=== PATIENT | female | born 1990 | race American Indian/Alaskan Native ===

== ENCOUNTER 2017-01-26 17:27 | Emergency (ER) | payer MEDICAID ==
[2017-01-26] MEDS ORDERED: LIDOCAINE VISCOUS 2% PO ONE (19:47)
--- NOTE | 2017-01-26 19:52 | Emergency Department Report ---
ED Female HPI - General Chief complaint: Rectal Pain Stated complaint: HEMORRIODS Time Seen by Provider: 01/26/17 19:23 Source: patient Mode of arrival: Ambulatory Limitations: No Limitations - History of Present Illness Initial comments: This is a 26-year-old female at 39 weeks gestation presents to ED complaining of rectal pain x today. She admits pain with sitting on her butt. Patient states she started to feel the pain around 4 AM today. She reports good movement and no vaginal discharge, bleeding or leakage of fluids Patient states she has a history of hemorrhoids but has never had one this bad. She denies any blood in the stool. patient states she had a bowel movement today. She denies fevers/chills/abdominal pain or any other problem Severity scale (0 -10): 9 Consistency: constant Improves with: none - Related Data Previous Rx's Medication Instructions Recorded Last Taken Type Sulfamethoxazole/Trimethoprim 1 each PO BID #14 tablet 02/11/16 Unknown Rx [Bactrim DS TAB] Acetaminophen [Tylenol] 500 mg PO Q6H #30 tablet 01/26/17 Unknown Rx Cephalexin [Keflex] 500 mg PO BID #12 capsule 01/26/17 Unknown Rx Docusate Sodium [Colace] 100 mg PO BID #30 capsule 01/26/17 Unknown Rx Hydrocortisone [Anucort-HC SUPPOS] 25 mg SD BID #30 supp.rect 01/26/17 Unknown Rx Allergies Allergy/AdvReac Type Severity Reaction Status Date / Time No Known Allergies Allergy Verified 02/11/16 10:25 ED Review of Systems ROS: Stated complaint: HEMORRIODS Other details as noted in HPI Constitutional: denies: chills, fever Eyes: denies: eye pain, eye discharge, vision change ENT: denies: ear pain, throat pain Respiratory: denies: cough, shortness of breath, wheezing Cardiovascular: denies: chest pain, palpitations Endocrine: no symptoms reported Gastrointestinal: denies: abdominal pain, nausea, vomiting, diarrhea Genitourinary: denies: urgency, dysuria, frequency, hematuria, discharge, dyspareunia Musculoskeletal: denies: back pain, joint swelling, arthralgia Skin: denies: rash, lesions Neurological: denies: headache, weakness, numbness, paresthesias, confusion Psychiatric: denies: anxiety, depression Hematological/Lymphatic: denies: easy bleeding, easy bruising ED Past Medical Hx - Past Medical History Hx Hypertension: Yes (1st baby) Hx Heart Attack/AMI: No Hx Congestive Heart Failure: No Hx Diabetes: No Hx Deep Vein Thrombosis: No Hx GERD: Yes Hx Liver Disease: No Hx Renal Disease: No Hx Sickle Cell Disease: No Hx Seizures: No Hx Asthma: No Hx COPD: No Hx HIV: No - Surgical History Additional Surgical History: D&C SEPTEMBER 2015 - Social History Smoking Status: Never Smoker Substance Use Type: None - Medications Home Medications: Home Medications Medication Instructions Recorded Confirmed Last Taken Type Sulfamethoxazole/Trimethoprim 1 each PO BID #14 tablet 02/11/16 Unknown Rx [Bactrim DS TAB] Acetaminophen [Tylenol] 500 mg PO Q6H #30 tablet 01/26/17 Unknown Rx Cephalexin [Keflex] 500 mg PO BID #12 capsule 01/26/17 Unknown Rx Docusate Sodium [Colace] 100 mg PO BID #30 capsule 01/26/17 Unknown Rx Hydrocortisone [Anucort-HC SUPPOS] 25 mg SD BID #30 supp.rect 01/26/17 Unknown Rx ED Physical Exam - General Limitations: No Limitations General appearance: alert, in no apparent distress - Head Head exam: Present: atraumatic, normocephalic - Eye Eye exam: Present: normal appearance - ENT ENT exam: Present: mucous membranes moist - Neck Neck exam: Present: normal inspection - Respiratory Respiratory exam: Present: normal lung sounds bilaterally. Absent: respiratory distress - Cardiovascular Cardiovascular Exam: Present: regular rate, normal rhythm. Absent: systolic murmur, diastolic murmur, rubs, gallop - GI/Abdominal GI/Abdominal exam: Present: soft, normal bowel sounds - Rectal Rectal exam: Present: hemorrhoids (external thrombosed hemorrhoid at 12 oclock measuring about 2-3 cm), mass, tenderness - External exam: Present: normal external exam - Expanded Exam Expanded External exam: Present: normal - Extremities Exam Extremities exam: Present: normal inspection - Back Exam Back exam: Present: normal inspection - Neurological Exam Neurological exam: Present: alert, oriented X3 - Psychiatric Psychiatric exam: Present: normal affect, normal mood - Skin Skin exam: Present: warm, dry, intact, normal color. Absent: rash ED Course Vital Signs 01/26/17 17:43 Temperature 98.0 F Pulse Rate 114 H Respiratory 17 Rate Blood Pressure 115/80 O2 Sat by Pulse 100 Oximetry ED Medical Decision Making - Medical Decision Making 26-year-old female presents with acute internal. 3 hemorrhage ED course: Topical lidocaine was applied. Patient positioned appropriately, 10cc lidocaine with epinephrine was used as a local anesthetic. #11 blade scalpel used for single incision. hemorrhoid was reducible after about 2ccs of blood passed. Patient reports feeling much better. Procedure tolerated without complications. Pt tolerated procedure well. Discussed with patient to follow-up with engineering director as referred. Discussed the patient to follow-up with her [employer] as scheduled. Discussed taken Colace for stool softening, and prevent infection and any required to further decrease the hemorrhoid Critical care attestation.: If time is entered above; I have spent that time in minutes in the direct care of this critically ill patient, excluding procedure time. ED Disposition Clinical Impression: Acute hemorrhoid Hemorrhoid Qualifiers: Hemorrhoid type: third degree Qualified Code(s): K64.2 - Third degree hemorrhoids Disposition: TO HOME OR SELFCARE Is pt being admited?: No Does the pt Need Aspirin: No Condition: Stable Instructions: Hemorrhoids (ED) Additional Instructions: Make sure to follow-up with a GI doctor. Follow-up with your [facility] [employer] as scheduled Particular medications as prescribed Prescriptions: Acetaminophen [Tylenol] 500 mg PO Q6H #30 tablet Cephalexin [Keflex] 500 mg PO BID #12 capsule Docusate Sodium [Colace] 100 mg PO BID #30 capsule Hydrocortisone [Anucort-HC SUPPOS] 25 mg SD BID #30 supp.rect Referrals: PRIMARY CARE, [Primary Care Provider] - 3-5 Days JODY PHILIP MD [Staff Physician] - 3-5 Days HAL WITT MD [Staff Physician] - 3-5 Days GILBERTO LEVY MD [Staff Physician] - 3-5 Days Forms: Accompanied Note, Work/School Release Form(ED) Time of Disposition: 21:02
[2017-01-26] MEDS ORDERED: ANUCORT-HC PR ONE (20:55)
[2017-01-26 22:04] VITALS: BP 111/77
== END 2017-01-26 21:58 | disposition home or self-care (01) ==
LOC: ED 17:27
DX: O22.43 Hemorrhoids in pregnancy, third trimester (principal); K64.2 Third degree hemorrhoids; K21.9 Gastro-esophageal reflux disease without esophagitis; Z3A.39 39 weeks gestation of pregnancy

== ENCOUNTER 2019-05-08 01:28 | Inpatient (IN) | payer MEDICAID ==
[2019-05-08] MEDS ORDERED: LACTATED RINGERS 1,000 ML IV SCH (02:00)
[2019-05-08] MEDS ORDERED: TERBUTALINE 1 MG/1 ML INJ SUB-Q PRN (02:00)
[2019-05-08] MEDS ORDERED: ePHEDrine SULFATE 50 MG/1 ML INJ IV PRN (02:00)
[2019-05-08] MEDS ORDERED: TERBUTALINE 1 MG/1 ML INJ IVP PRN (02:00)
[2019-05-08] MEDS ORDERED: MINERAL OIL 30 ML ORAL LIQD PO PRN (02:00)
[2019-05-08] MEDS ORDERED: AMPICILLIN/NS 2 GM/100 ML 2 GM/100 ML BAG IV ONE (02:00)
[2019-05-08] MEDS ORDERED: LIDOCAINE (2%) 20 MG/1 ML VIAL 20 ML MDV INFILTRATI ONE (02:00)
[2019-05-08] MEDS ORDERED: fentaNYL 100 MCG/2 ML INJ IV PRN (02:00)
[2019-05-08 02:30] LABS: Hematocrit 40.6 % (30.3-42.9); Hemoglobin 13.8 gm/dl (10.1-14.3); Mean Corpuscular HGB Conc 34 % (30-34); Mean Corpuscular Volume 97 fl (79-97); Platelet Count 218 K/mm3 (140-440); Red Blood Count 4.19 M/mm3 (3.65-5.03); Red Cell Distribution Width 13.7 % (13.2-15.2)
--- NOTE | 2019-05-08 02:50 | History and Physical Report ---
History of Present Illness Date of examination: 05/08/19 Chief complaint: Labor History of present illness: Pt is a 29yo BF EDC 05/05/19; EGA 40 3/7 weeks presents to L&D complaining of RUC's q 3-5 mins. She [facility] care at [facility] since 14 weeks and course has been unremarkable. records are available and GBS is Positive. Past History Past Medical History: no pertinent history Past Surgical History: no surgical history Family/Genetic History: none Social history: no significant social history, - Obstetrical History Expected Date of Delivery: 05/05/19 Actual Gestation: 40 Week(s) 3 Day(s) : 5 Medications and Allergies Allergies Allergy/AdvReac Type Severity Reaction Status Date / Time No Known Allergies Allergy Verified 01/26/17 20:58 Home Medications Medication Instructions Recorded Confirmed Last Taken Type Sulfamethoxazole/Trimethoprim 1 each PO BID #14 tablet 02/11/16 Unknown Rx [Bactrim DS TAB] Acetaminophen [Tylenol] 500 mg PO Q6H #30 tablet 01/26/17 Unknown Rx Cephalexin [Keflex] 500 mg PO BID #12 capsule 01/26/17 Unknown Rx Docusate Sodium [Colace] 100 mg PO BID #30 capsule 01/26/17 Unknown Rx Hydrocortisone [Anucort-HC SUPPOS] 25 mg PA BID #30 supp.rect 01/26/17 Unknown Rx Ibuprofen [Motrin 600 MG tab] 600 mg PO Q8H PRN #30 tablet 01/31/17 Unknown Rx Multivitamin with Iron 1 each PO DAILY #30 tablet 01/31/17 Unknown Rx [Multivitamins with Iron] Cyclobenzaprine [Flexeril] 10 mg PO TID PRN #30 tablet 04/16/18 Unknown Rx Menthol/Camphor [[place] Ute 1 applicatio TP TID PRN #1 tube 04/16/18 Unknown Rx Ointment] Naproxen [Naprosyn TAB] 500 mg PO BID PRN #30 tablet 04/16/18 Unknown Rx Active Meds: Active Medications Ephedrine Sulfate (Ephedrine Sulfate) 10 mg IV Q2M PRN PRN Reason: Hypotension Fentanyl (Sublimaze) 100 mcg IV Q2H PRN PRN Reason: Labor Pain Oxytocin/Sodium Chloride (Pitocin/Ns 20 Unit/1000ml Drip) 20 units in 1,000 mls @ 125 mls/hr IV DIRECT TAD Lactated Ringer's (Lactated Ringers) 1,000 mls @ 125 mls/hr IV DIRECT TAD Ampicillin Sodium (Ampicillin/Ns 2 Gm/100 Ml) 2 gm in 100 mls @ 100 mls/hr IV ONCE ONE; Protocol Stop: 05/08/19 02:59 Ampicillin Sodium (Ampicillin/Ns 1 Gm/50 Ml) 1 gm in 50 mls @ 100 mls/hr IV Q4HR TAD; Protocol Mineral Oil (Mineral Oil) 30 ml PO QHS PRN PRN Reason: Constipation Terbutaline Sulfate (Brethine) 0.25 mg SUB-Q ONCE PRN PRN Reason: Hyperstimulation/Hypertonicity Terbutaline Sulfate (Brethine) 0.25 mg IVP ONCE PRN PRN Reason: Hyperstimulation/Hypertonicity Review of Systems All systems: negative - Vital Signs Vital signs: Vital Signs Pulse BP 105 H 137/90 05/08/19 01:48 05/08/19 01:48 Temp Pulse Resp BP Pulse Ox 93 H 137/78 05/08/19 02:39 05/08/19 02:39 - Physical Exam Breasts: Positive: deferred Cardiovascular: Regular rate Lungs: Positive: Clear to auscultation Abdomen: Positive: normal appearance Genitourinary (Female): Positive: normal external genitalia Vagina: Positive: normal moisture Uterus: Positive: enlarged Extremities: Positive: normal - Obstetrical FHR: category 1 Uterine Contraction Monitor Mode: External Cervical Dilatation: 10 Cervical Effacement Percentage: 100 station: +2 Uterine Contraction Pattern: Regular Uterine Tone Measurement Phase: Contraction Uterine Contraction Intensity: Strong/Firm Results Result Diagrams: 05/08/19 02:10 Abnormal lab results 05/08/19 Range/Units 02:10 MCH 33 H (28-32) pg All other labs normal. Assessment and Plan - Patient Problems (1) 40 weeks gestation of Onset Date: 05/08/19 Current Visit: No Status: Acute Plan to address problem: A: IUP @ 40 3/7 weeks in labor +GBS P: Admit to L&D for expectant vaginal delivery IV Ampicillin (2) Active labor at term Onset Date: 05/08/19 Current Visit: No Status: Acute
[2019-05-08] MEDS ORDERED: WITCH HAZEL/ GLYCERIN PAD TP PRN (02:55)
[2019-05-08] MEDS ORDERED: diphenhydrAMINE 25 MG CAP PO PRN (02:55)
[2019-05-08] MEDS ORDERED: ACETAMINOPHEN 325 MG TAB PO PRN (02:55)
[2019-05-08] MEDS ORDERED: PROMETHAZINE 25 MG RECT SUPP PR PRN (02:55)
[2019-05-08] MEDS ORDERED: MAGNESIUM HYDROXIDE (MOM) ORAL LIQD UDC PO PRN (02:55)
[2019-05-08] MEDS ORDERED: PROMETHAZINE 25 MG TAB PO PRN (02:55)
[2019-05-08] MEDS ORDERED: LANOLIN/ZINC/DIMETHICONE (LANSINOH) 7 GM TP PRN (02:55)
[2019-05-08] MEDS ORDERED: ONDANSETRON 4 MG/2 ML INJ IV PRN (02:55)
--- NOTE | 2019-05-08 02:55 | Procedure Note ---
OB Delivery Note - Delivery Date of Delivery: 05/08/19 Surgeon: BENI VERDIN Estimated blood loss: 100cc - Vaginal Delivery presentation: vertex Delivery position: OA Intrapartum events: precipitous labor- <3hr Delivery induction: none Delivery monitor: external FHT, external uterine Route of delivery: Delivery placenta: spontaneous Delivery cord: 3 umbilical vessels Episiotomy: none Delivery laceration: none Anesthesia: none Delivery comments: delivered OA and placed on Mom's chest for [id number] bonding and delayed cord clamping, cut by Dad - A at 1 minute: 8 at 5 minutes: 9 Infant Gender: Female (3361gms)
[2019-05-08] MEDS: OXYTOCIN 20 UNIT/1000ML DRIP 20 UNITS/1,000 ML BAG IV SCH ×2 (03:13→04:06)
[2019-05-08] MEDS: IBUPROFEN 600 MG TAB PO SCH ×3 (03:50→17:56)
[2019-05-08] MEDS ORDERED: AMPICILLIN/NS 1 GM/50 ML 1 GM/50 ML BAG IV SCH (06:01)
[2019-05-08] MEDS: FERROUS SULFATE 325 MG TAB PO SCH (09:05)
[2019-05-08] MEDS: DOCUSATE SODIUM 100 MG CAP PO SCH (09:05)
[2019-05-08] MEDS: PRENATAL VIT27-FE FUMARATE-FOLIC ACID VIT TAB PO SCH (09:06)
[2019-05-08] MEDS: HYDROcodone/ACETAMINOPHEN 5-325 MG TAB PO PRN ×2 (12:42→22:44)
[2019-05-08 15:37] LABS: Hemoglobin 11.6 gm/dl (10.1-14.3)
[2019-05-09] MEDS ORDERED: MEASLES, MUMPS & RUBELLA 12,500 UNIT/0.5 ML VACCINE SUB-Q ONE (02:55)
[2019-05-09] MEDS ORDERED: TETANUS,DIPH,PERTUSS(ACELL) VACCINE 0.5 ML SYRINGE IM ONE (06:00)
[2019-05-09] MEDS: PRENATAL VIT27-FE FUMARATE-FOLIC ACID VIT TAB PO SCH (10:56)
[2019-05-09] MEDS: DOCUSATE SODIUM 100 MG CAP PO SCH ×2 (10:57→11:00)
[2019-05-09] MEDS: FERROUS SULFATE 325 MG TAB PO SCH ×2 (10:57→11:00)
[2019-05-09] MEDS: IBUPROFEN 600 MG TAB PO SCH (11:00)
--- NOTE | 2019-05-09 11:07 | Progress Note ---
Assessment and Plan - Patient Problems (1) 40 weeks gestation of Onset Date: 05/08/19 Current Visit: No Status: Resolved (2) Active labor at term Onset Date: 05/08/19 Current Visit: No Status: Resolved (3) (normal spontaneous vaginal delivery) Onset Date: 05/09/19 Current Visit: No Status: Resolved Plan to address problem: A: S/P - PPD #1 Doing well Asymptomatic anemia - stable P: May go home today. Subjective - Subjective Date of service: 05/09/19 Principal diagnosis: s/p - PPD #1 Interval history: Pt is feeling well without complaints. Bleeding improved. Wants to go home. Patient reports: appetite normal, voiding normally, pain well controlled, flatus, ambulating normally, no dizzy ambulation, no nauseated [place]: doing well, nursing well Objective - Vital Signs Latest vital signs: Vital Signs Temp Pulse Resp BP 05/09/19 08:32 98.2 F 79 18 125/85 05/09/19 00:00 98.4 F 68 16 114/78 05/08/19 16:55 99 F 82 20 120/79 Intake and Output 05/08/19 05/09/19 05/09/19 22:59 06:59 14:59 Intake Total 540 120 Balance 540 120 Intake: Oral 240 120 Intake, Free Water 300 Other: Total, Intake Amount 240 120 # Voids Void 1 1 1 - Exam Breasts: Present: deferred Abdomen: Present: normal appearance, soft Uterus: Present: normal, firm, fundal height below umbilicus Extremities: Present: normal - Labs Labs: Laboratory Tests 05/08/19 05/08/19 05/08/19 02:10 02:10 15:16 WBC 7.9 RBC 4.19 Hgb 13.8 11.6 Hct 40.6 34.0 D MCV 97 MCH 33 H MCHC 34 RDW 13.7 Plt Count 218 Blood Type O POSITIVE Antibody Screen Negative
--- NOTE | 2019-05-09 11:43 | Discharge Summary ---
Providers - Providers Date of Admission: 05/08/19 02:01 Date of discharge: 05/09/19 Attending physician: BENI VERDIN Primary care physician: BENI VERDIN Hospitalization Reason for admission: active labor, IUP at term Delivery: Episiotomy: none Laceration: none Other procedures: none complications: none Discharge diagnosis: IUP at term delivered [place] baby: female Hospital course: Laboratory Tests 05/08/19 05/08/19 05/08/19 02:10 02:10 15:16 WBC 7.9 RBC 4.19 Hgb 13.8 11.6 Hct 40.6 34.0 D MCV 97 MCH 33 H MCHC 34 RDW 13.7 Plt Count 218 Blood Type O POSITIVE Antibody Screen Negative Condition at discharge: Good Disposition: DC-01 TO HOME OR SELFCARE - Discharge Diagnoses (1) 40 weeks gestation of Status: Resolved (2) Active labor at term Status: Resolved (3) (normal spontaneous vaginal delivery) Status: Resolved Plan - Discharge Medications Prescriptions: Ferrous Sulfate [Feosol 325 MG tab] 325 mg PO BID #60 tablet Ibuprofen [Motrin 600 MG tab] 600 mg PO Q6H #30 tablet Vit-Fe Fumar-FA [ Vitamin] 1 each PO QDAY #30 tablet - Provider Discharge Summary Activity: routine, no sex for 6 weeks, no heavy lifting 4 weeks, no strenuous ex ercise Diet: routine Instructions: routine Additional instructions: [] Smoking cessation referral if applicable(refer to patient education folder for contact #) [] Refer to [facility] Booklet Call your doctor immediately for: * Fever > 100.5 * Heavy vaginal bleeding ( >1 pad per hour) * Severe persistent headache * Shortness of breath * Reddened, hot, painful area to leg or breast * Drainage or odor from incision. * Keep incision clean and dry at all times and follow doctor's instructions regarding bathing/showering - Follow up plan Follow up: BENI VERDIN MD [Primary Care Provider] - 6 Weeks SANA ZALDIVAR NP [Referring] - 6 Weeks
[2019-05-09 12:54] VITALS: BP 126/80
== END 2019-05-09 12:20 | disposition home or self-care (01) | DRG 775 ==
LOC: TRG 01:28 → LD 02:01 → OB 05:04
PROVIDERS: ADMIT Obstetrics & Gynecology; ATTEND Obstetrics & Gynecology
PROC: 10E0XZZ Delivery of Products of Conception, External Approach (ICD-10-PCS; principal; 2019-05-08)
PROC: 3E0234Z Introduction of Serum, Toxoid and Vaccine into Muscle, Percutaneous Approach (ICD-10-PCS; 2019-05-09)
PROC: 3E0134Z Introduction of Serum, Toxoid and Vaccine into Subcutaneous Tissue, Percutaneous Approach (ICD-10-PCS; 2019-05-09)
DX: O62.3 Precipitate labor (principal); O99.02 Anemia complicating childbirth; O99.824 Streptococcus B carrier state complicating childbirth; Z3A.40 40 weeks gestation of pregnancy; Z37.0 Single live birth; Z79.899 Other long term (current) drug therapy; Z23 Encounter for immunization
CPT/HCPCS: 36415; 85014; 85018; 85027; 86850; 86900; 86901; G0378; J2590